=== PATIENT | male | born 1980 | race Caucasian/White ===

== ENCOUNTER 2019-05-08 19:17 | Emergency (ER) | payer MEDICAID, MEDICARE ==
[~2019-05-08] VITALS: Ht 175.3 cm; Wt 81.8 kg
[~2019-05-08 19:17] MED LIST: BAC10T PO; LIDOcaine 1% W/epiNEPHrine 1:100,000 20ml vial ONE; NORCO10T PO; RABE20TA25 PO; [UNRECOGNIZED DRUG - OTHER]
[2019-05-08 19:33] VITALS: BP 152/92
[2019-05-08] MEDS ORDERED: TETanus/Pertussis (Acell)/Diphther VAC/PF (Tdap-Adult) 0.5ml syringe IMVAC ONE (20:45)
== END 2019-05-08 22:50 | disposition home or self-care (01) ==
LOC: ER 19:17
DX: S61.211A Laceration without foreign body of left index finger without damage to nail, initial encounter (principal); G89.29 Other chronic pain; Z56.0 Unemployment, unspecified; Z88.5 Allergy status to narcotic agent; Z79.899 Other long term (current) drug therapy; W22.8XXA Striking against or struck by other objects, initial encounter; Y93.89 Activity, other specified; Y92.89 Other specified places as the place of occurrence of the external cause; Y99.8 Other external cause status
CPT/HCPCS: 12002; 90471; 99283

== ENCOUNTER 2019-05-22 13:50 | Emergency (ER) | payer MEDICARE ==
[~2019-05-22] VITALS: Ht 175.3 cm; Wt 81.0 kg
[~2019-05-22 13:50] MED LIST changes: -LIDOcaine 1% W/epiNEPHrine 1:100,000 20ml vial ONE
[2019-05-22 13:55] VITALS: BP 125/84
== END 2019-05-22 15:32 | disposition home or self-care (01) ==
LOC: ER 13:51
DX: S61.211D Laceration without foreign body of left index finger without damage to nail, subsequent encounter (principal); G89.29 Other chronic pain; Z88.6 Allergy status to analgesic agent; Z88.1 Allergy status to other antibiotic agents; Z79.899 Other long term (current) drug therapy; Z56.0 Unemployment, unspecified; W22.8XXD Striking against or struck by other objects, subsequent encounter
CPT/HCPCS: 99281

== ENCOUNTER 2020-09-12 09:02 | Emergency (ER) | payer MEDICARE ==
[~2020-09-12] VITALS: Ht 175.3 cm; Wt 87.7 kg
[2020-09-12] MEDS ORDERED: acetaminophen 325mg tablet PO ONE (09:20)
[2020-09-12] MEDS ORDERED: ibuprofen tablet 400 MG TABLET PO ONE (09:20)
[2020-09-12 09:41] VITALS: BP 124/84
== END 2020-09-12 10:09 | disposition home or self-care (01) ==
LOC: ER 09:03
DX: U07.1 COVID-19 (principal); B34.9 Viral infection, unspecified; R05 Cough; R53.83 Other fatigue; R50.9 Fever, unspecified; G89.29 Other chronic pain; Z56.0 Unemployment, unspecified; Z88.1 Allergy status to other antibiotic agents; Z88.5 Allergy status to narcotic agent; Z79.899 Other long term (current) drug therapy
CPT/HCPCS: 99283

== ENCOUNTER 2023-04-23 09:39 | Day surgery (SDC) | payer MEDICARE, MEDICAID ==
[~2023-04-23] VITALS: Ht 172.7 cm; Wt 88.5 kg
[2023-04-23] VITALS (9 sets, daily range): BP systolic 111–146; BP diastolic 69–106; PULSE 63–78; RESP 14–15; TEMP 98.2; O2SAT 92–98
[~2023-04-23 09:39] MED LIST changes: -[UNRECOGNIZED DRUG - OTHER]
[2023-04-23] MEDS ORDERED: diphenhydrAMINE 25mg capsule PO PRN (10:00)
[2023-04-23] MEDS ORDERED: normal saline 1,000 ML IV SCH (10:00)
[2023-04-23] MEDS ORDERED: sodium bicarbonate 1meq/ml syr 150 ML in dextrose 5%-water 1,000 ML IV ONE (10:00)
[2023-04-23] MEDS ORDERED: DOXE6TAB4 PO (10:22)
[2023-04-23] MEDS ORDERED: NITR0.4T48 (10:22)
[2023-04-23] MEDS ORDERED: iohexol 350MG/ML 100ml bottle IV ONE (10:31)
[2023-04-23] MEDS ORDERED: verapamil 2.5 mg/ml inj IV ONE (10:31)
[2023-04-23] MEDS ORDERED: heparin 1,000unit/ml 10ml vial 10 ML ONE (10:31)
[2023-04-23] MEDS ORDERED: midazolam 1 mg/ML 2ml injection ONE ×3 (10:31→11:30)
[2023-04-23] MEDS ORDERED: fentaNYL/PF 50MCG/1 ML 2ML syringe ONE (10:31)
[2023-04-23] MEDS ORDERED: LIDOcaine 1% (10mg/ml) 2ml vial ONE (10:31)
[2023-04-23] MEDS ORDERED: nitroGLYCERIN 500mcg/5mL D5W 5 ML IV ONE (10:36)
[2023-04-23 10:37] LABS: BASOPHILS # (AUTO) 0.1 X10'3 (0-0.2); BASOPHILS % (AUTO) 0.8 % (0-1); EOSINOPHILS # (AUTO) 0.1 X10'3 (0-0.9); EOSINOPHILS % (AUTO) 1.3 % (0-6); HEMATOCRIT 46.7 % (42.0-52.0); LYMPHOCYTES # (AUTO) 1.9 X10'3 (1.1-4.8); LYMPHOCYTES % (AUTO) 28.7 % (21-51); MEAN CORPUSCULAR HEMOGLOBIN 29.9 PG (27.0-31.0); MEAN CORPUSCULAR HGB CONC 34.3 g/dL (33.0-36.5); MEAN CORPUSCULAR VOLUME 87.1 FL (78-98); MEAN PLATELET VOLUME 7.3 FL (7.4-10.4); MONOCYTES # (AUTO) 0.5 X10'3 (0-0.9); MONOCYTES % (AUTO) 7.7 % (2-12); NEUTROPHILS % (AUTO) 61.5 % (42-75); PLATELET COUNT 378 X10'3 (140-440); RED BLOOD COUNT 5.36 X10'6 (4.70-6.10); RED CELL DISTRIBUTION WIDTH 13.8 % (11.5-14.5); WHITE BLOOD COUNT 6.4 X10'3 (4.5-11.0)
[2023-04-23] MEDS ORDERED: iohexol 350 MG/ML 50ML vial IV ONE ×2 (10:43→12:05)
[2023-04-23 10:45] LABS: ALBUMIN 3.7 G/DL (3.4-5.0); ANION GAP 10 (8-16); BLOOD UREA NITROGEN 12 MG/DL (7-18); BUN/CREATININE RATIO 12.9 (10.0-20.0); CALCIUM 8.9 MG/DL (8.5-10.1); CHLORIDE 102 MMOL/L (99-107); CREATININE 0.93 MG/DL (0.60-1.10); GLUCOSE 111 MG/DL (70-104); MAGNESIUM 1.7 MG/DL (1.5-2.4); POTASSIUM 3.8 MMOL/L (3.5-5.1); SODIUM 137 MMOL/L (135-145); TOTAL CARBON DIOXIDE 24.6 MMOL/L (24-32); eCRCL 99 ML/MIN; eGFR 89 ML/MIN
[2023-04-23] MEDS ORDERED: proCHLORperazine 10 MG/2 ml inj ONE (11:31)
== END 2023-04-23 15:45 | disposition home or self-care (01) ==
LOC: SSTAY O 09:39
PROVIDERS: ATTEND Internal Medicine Cardiovascular Disease
DX: R07.89 Other chest pain (principal); I25.10 Atherosclerotic heart disease of native coronary artery without angina pectoris; E78.5 Hyperlipidemia, unspecified; Z79.899 Other long term (current) drug therapy
CPT/HCPCS: 36415; 80048; 83735; 85025; 93005; 93458; 99152; 99153; A6258; J0780; J1644; J2250; J3010; J3490; J7030; Q0163; Q9967; A6402; C1769; C1894